=== PATIENT | male | born 1940 | race Caucasian/White ===

== ENCOUNTER 2022-10-11 17:02 | Outpatient (CLI) | payer MEDICARE, OTHER, SELFPAY ==
[2022-10-11 16:55] LABS: ESR 8 mm/hr (0-20)
[2022-10-11 16:56] LABS: Abs Immature Grans 0.03 10^3/uL (0.0-0.06); Absolute Basophil Count 0.05 10^3/uL (0.0-0.2); Absolute Eosinophil Count 0.21 10^3/uL (0.0-0.7); Absolute Monocyte Count 0.69 10^3/uL (0.1-0.8); Absolute Neutrophil Count 4.78 10^3/uL (1.2-6.7); Basophils % 0.7; Eosinophils % 2.8; HCT 38.9 % (40.0-50.0); HGB 13.2 g/dL (13.5-17.5); Immature Grans % 0.4; Lymphocytes % 23.8; MCH 31.1 pg (27.0-33.0); MCHC 33.9 % (32.0-36.0); MCV 92 fL (80-95); MPV 9.5 fL (8.0-11.0); Monocytes % 9.1; Neutrophils % 63.2; Platelet Count 223 10^3/uL (130-400); RBC 4.25 10^6/uL (4.36-5.78); RDW 12.6 % (11.8-14.1); RDW-SD 41.4 fL; WBC 7.56 10^3/uL (4.4-10.8)
[2022-10-11 17:14] LABS: C-Reactive Protein 0.83 mg/dL (0.0-0.3); Glucose 93 mg/dL (74-106)
[2022-10-11 17:27] LABS: Calculated LDL 108 mg/dL (<100); Cholesterol 195 mg/dL (<200); HDL Cholesterol 35 mg/dL (40-60); Triglyceride 262 mg/dL (<150)
== END 2022-10-11 17:03 | disposition home or self-care (01) ==
LOC: LBO 17:03
PROVIDERS: Visit Provider Optometrist
DX: H53.121 Transient visual loss, right eye (principal)
CPT/HCPCS: 36415; 80061; 82947; 85652; 85014; 85018; 85025; 86140

== ENCOUNTER 2022-10-11 17:19 | Emergency (ER) | payer MEDICARE, OTHER, SELFPAY ==
[2022-10-11] VITALS (24 sets, daily range): BP systolic 133–172; BP diastolic 49–74; PULSE 76–88; RESP 16–20; TEMP 36.4–36.6; O2SAT 92–100
--- NOTE | 2022-10-11 17:30 | DI.CT_ITS ---
Exam(s) CT BRAIN NECK CTA EXAM: CT BRAIN NECK CTA CLINICAL HISTORY: Vision disturbances, fall 1 week ago. TECHNIQUE: Imaging Protocol: Axial CT angiography was performed with multi-slice acquisition and mu lti-planar and/or 3D reconstructions. CONTRAST MATERIAL: Intravenous: Omnipaque 350 contrast volume:80 mL COMPARISON: No exams were available for comparison FINDINGS: CT Head W/O and W: Ventricles and Extra axial spaces: Normal in size and morphology for the patient's age. Hemorrhage: None. Cerebral parenchyma: No acute territorial infarct. There are areas of decreased attenuation in the w darrick matter most consistent with small vessel ischemic disease. Midline shift: None. Brainstem/Cerebellum: Normal. Calvarium: Normal. Visualized Paranasal sinuses/Mastoids: There is a mucous retention cyst or polyp in the right maxilla ry sinus. The remaining visualized paranasal sinuses are unremarkable as are the mastoid air cells. Soft Tissues: Unremarkable. Enhancement: Unremarkable. CTA Neck W: Common Carotid: Right: No dissection, occlusion or significant stenosis. Mild atherosclerosis. Left: No dissection, occlusion or significant stenosis. External Carotid: Right: No occlusion or significant stenosis. Mild atherosclerosis at the origin. Left: No occlusion or significant stenosis. Internal Carotid: Right: No dissection, occlusion or significant stenosis. Atherosclerosis at the origin resulting in 75 percent stenosis. Left: No dissection, occlusion or significant stenosis. Atherosclerosis at the origins with less jimmy n 50 percent stenosis. Vertebral Artery: Right: No dissection, occlusion or significant stenosis. The right vertebral artery terminates into a patent right PICA. Left: No dissection, occlusion or significant stenosis. Lung Apices: Normal. Bones: Within normal limits for the patient's age. Soft Tissues: Normal. Thyroid gland: Unremarkable. CTA Brain W: Internal Carotid Arteries: No aneurysm, occlusion or significant stenosis. Mild atherosclerosis. Anterior Cerebral Arteries: Right: No aneurysm, occlusion or significant stenosis. Left: No aneurysm, occlusion or significant stenosis. Middle Cerebral Arteries: Right: No aneurysm, occlusion or significant stenosis. Left: No aneurysm, occlusion or significant stenosis. Posterior Cerebral Arteries: Right: No aneurysm, occlusion or significant stenosis. There is origin of the right ADMINISTRATIVE PROCESSOR which is a normal variant. Left: No aneurysm, occlusion or significant stenosis. Vertebral Arteries: Right: No aneurysm, occlusion or significant stenosis. Left: No aneurysm, occlusion or significant stenosis. Basilar Artery: No aneurysm, occlusion or significant stenosis. IMPRESSION: 1. No large vessel occlusion or significant stenosis on the CT angiography of the head. 2. No acute intracranial process. 3. 75 percent stenosis in the proximal right ICA. No evidence of occlusion on the CT angiography of the neck. RADIATION DOSE DELIVERED: 2,239.73mGy.cm Total DLP DATA REPOSITORY: All CT scans at this facility are submitted to the National Radiology Data Registry (NRDR) Dose Index Registry (DIR) with the [employer] (ACR). RADIATION OPTIMIZATION: All CT scans at this facility use at least one of these dose optimization te chniques: automated exposure control; mA and/or kV adjustment per patient size (includes targeted exa ms where dose is matched to clinical indication); or iterative reconstruction.
--- NOTE | 2022-10-11 17:43 | ED.GENADUL_ITS ---
Discharge Plan Disposition Patient Disposition: Home Condition: Stable Discharge Details Clinical Impression: Carotid stenosis, right Primary Care Provider: Julia Bowen ED Provider: Kaya Garcia Home Meds and New Rx's Prescriptions: New atorvastatin 10 mg tablet 10 mg PO .every other day 30 Days Qty: 30 0RF Rx Instructions: Take one tablet by mouth every other day. clopidogrel [Plavix] 75 mg tablet 75 mg PO DAILY 30 Days Qty: 30 0RF Rx Instructions: Take one tablet by mouth daily aspirin 81 mg tablet,chewable 81 mg PO DAILY Qty: 30 0RF Rx Instructions: Chew one tablet daily Continued metoprolol succinate 50 mg Tablet Extended Release 24 Hr 50 mg PO BID tamsulosin 0.4 mg Capsule 0.4 mg PO DAILY amlodipine 10 mg Tablet 10 mg PO DAILY losartan 100 mg Tablet 100 mg PO DAILY brimonidine 0.15 % Drops 1 drp OPHTHALMIC (EYE) DAILY prednisolone acetate (PF) 1 % Drops,Suspension 1 drp ophthalmic (eye) DAILY Discharge Instructions Instructions: Carotid Artery Disease (DC) Additional Instructions: Please take the medications as prescribed. Begin taking Plavix or clopidogrel once daily, continue taking the chewable baby aspirin daily, they do suggest a low-dose statin every other day to decrease the incidence of leg cramping. Please follow-up with [facility] vascular surgery department they will call you for an appointment to be set that up within the next week. I did speak with Dr. Franco with Vascular Surgery. Follow up with primary care provider in 3-5 days. Return to ED sooner if any worsening headache, visual disturbances, weakness or concerns. Increase oral fluids. Referrals: Julia Bowen [Primary Care Provider] - 3 days Medical Decision Making 82-year-old male presents to the ER with chief complaint of visual disturbances status post fall 1 week ago where he hit his left eye on Saturday night stand. He reports since then he has had some visual field disturbances he reports a curtain falling to his right eye which has happened a couple times. He was sent here by [facility] and was recommended to have CT EEG, carotid ultrasound and MRI. He did have his labs drawn prior to arrival CBC CRP sed rate platelets and lipid panel and a glucose level. Patient denies any headache no focal neurodeficits no numbness weakness or tingling in his extremities. Alert and oriented x4. CTA brain and neck ordered, CMP and IV access ordered. CMP shows elevated BIUN and Cr of 1.9. , CRP 0.83 ESR normal at 8 CT shows 75% stenosis of Right ICA. And 30% stenosis of Left ICA. 1942: [facility] [place] to consult with Neurology. Discussed CT results with patient he verbalized understanding and is aware of the plan of care, he reports he does take an 81 mg baby aspirin daily. He is unsure of what statin he was on approximately 5 or 6 years ago that gave him leg cramps. 2005: Spoke with Dr. Smith with [facility] [place] neurology regarding patient case In details he was able to personally review the CT imaging, he recommends antiplatelet therapy such as clopidogrel 600 mg loading dose and carotid intervention in the near future he also recommends consult with vascular surgery which transfer center will get me in contact with. He also suggested possible statin every other day at a low dose. vascular surgery paged per transfer center. Clopidogrel 600 mg ordered. 2033: Spoke with Dr. Vogel with vascular surgery who agrees with Dr. Smith regarding dual antiplatelet therapy and every other day low-dose statin he will arrange to get patient in with the outpatient clinic within the next week. I will inform patient that he should expect a call from [facility] [place] vascular. He also recommends Plavix 75 mg daily continue with aspirin. Patient discharged in hemodynamically stable condition. This text was generated using [employer]ax [employer] system, please disregard any oddities of phrase or misspellings. Medical Records Medical records reviewed: Yes I reviewed the patient's medical records. Lab Data Lab results reviewed: Yes I reviewed the patient's lab results. Labs: Laboratory Tests Range/Units 10/11/22 17:57 Sodium (136-145) mmol/L 140 Potassium (3.5-5.1) mmol/L 4.7 Chloride (98-107) mmol/L 104 Carbon Dioxide (21.0-32.0) mmol/L 29.3 Anion Gap (3-11) mmol/L 6.7 BUN (7-18) mg/dL 34 H Creatinine (0.70-1.30) mg/dL 1.9 H Est GFR (CKD-EPI 2020) (mL/min/1.73m2) 35.00 Glucose (74-106) mg/dL 104 Calcium (8.5-10.1) mg/dL 9.0 Total Bilirubin (0.2-1.0) mg/dL 0.4 AST (15-37) U/L 22 ALT (16-63) U/L 41 Alkaline Phosphatase (46-116) U/L 60 Total Protein (6.4-8.2) g/dL 7.6 Albumin (3.4-5.0) g/dL 4.2 HPI General Mode of arrival: ambulatory . Date/Time Provider Initiated Documentation: 10/11/22 17:28 . Limitations to Documentation: no limitations . Information obtained by: patient, RN/MD, RN notes reviewed and old records reviewed . HPI Narrative: 82-year-old male presents to the ER with chief complaint of visual disturbances status post fall 1 week ago where he hit his left eye on Saturday night stand. He reports since then he has had some visual field disturbances he reports a curtain falling to his right eye which has happened a couple times. He was sent here by [facility] and was recommended to have CT EEG, carotid ultrasound and MRI. He did have his labs drawn prior to arrival CBC CRP sed rate platelets and lipid panel and a glucose level. Patient denies any headache no focal neurodeficits no numbness weakness or tingling in his extremities. Alert and oriented x4. Related Data Home Medications Medication Instructions Recorded Confirmed amlodipine 10 mg tablet 10 mg PO DAILY 10/11/22 10/11/22 aspirin 81 mg chewable tablet 81 mg PO DAILY #30 tabs 10/11/22 atorvastatin 10 mg tablet 10 mg PO .every other day 1 month 10/11/22 #30 tabs brimonidine 0.15 % eye drops 1 drp ophthalmic (eye) DAILY 10/11/22 10/11/22 clopidogrel 75 mg tablet (Plavix) 75 mg PO DAILY 1 month #30 tabs 10/11/22 losartan 100 mg tablet 100 mg PO DAILY 10/11/22 10/11/22 metoprolol succinate 50 mg 50 mg PO BID 10/11/22 10/11/22 tablet,extended release 24 hr prednisolone acetate (PF) 1 % eye 1 drp ophthalmic (eye) DAILY 10/11/22 10/11/22 drops,suspension tamsulosin 0.4 mg capsule 0.4 mg PO DAILY 10/11/22 10/11/22 Previous Rx's Medication Instructions Recorded aspirin 81 mg chewable tablet 81 mg PO DAILY #30 tabs 10/11/22 atorvastatin 10 mg tablet 10 mg PO .every other day 1 month 10/11/22 #30 tabs clopidogrel 75 mg tablet (Plavix) 75 mg PO DAILY 1 month #30 tabs 10/11/22 Allergies Allergy/AdvReac Type Severity Reaction Status Date / Time [id number] Reductase AdvReac Intermediate Other (See Unverified 10/11/22 17:27 Inhibitor Comment) General Stated Complaint: CVA/TIA CORTNEY: 3 Review of Systems All systems reviewed & are unremarkable except as noted in HPI and below Constitutional Constitutional: Denies headache(s) and Denies weakness Eyes Eyes: Reports as per HPI, Reports blurry vision, Reports change in vision and Reports other visual disturbances ENT Ears, Nose, Mouth, and Throat: Denies dizziness and Denies headache(s) Cardiovascular Cardiovascular: Denies chest pain and Denies dyspnea Respiratory Respiratory: Denies dyspnea Musculoskeletal Musculoskeletal: Denies abnormal gait Neurologic Neurologic: Denies abnormal speech, Denies abnormal gait, Denies dizziness, Denies headache(s), Reports other visual disturbances, Denies seizure-like activity and Denies weakness PFSH All Active Problems (Updated 10/11/22 @ 20:40 by Kaya Garcia NP) Carotid stenosis, right (Acute) Social History Smoking/Tobacco Use Status: Never Smoking risk assessment performed?: Yes Alcohol Intake: never Drug use: Never Substance use type: does not use Do you feel safe at home: Yes Do you feel safe in your relationship?: Yes Exam Narrative Exam Narrative: Constitutional: Alert and oriented x3. Appears stated age. Normal body habitus. Head: Normocephalic, no trauma. Eyes: Pupils PERRL, Red reflex noted, EOM's intact. Eyelids symmetrical without lesions, discharge, or swelling. ENT: Bilateral TM's WNL, External ear normal to inspection, no mastoid TTP, swelling, or erythema, Nasal turbinates WNL, no nasal discharge. Normal dentition, Posterior pharynx WNL, no exudate. Chest: RRR, Normal S1, S2, distal pulses intact. Resp: Lungs clear to auscultation bilaterally, no wheezes, rales, or rhonchi. Abdomen: Soft, non-distended, Normoactive bowel sounds all 4 quads. Musculoskeletal: Normal gait, 5/5 strength to all four extremities. Skin: No suspicious rashes or lesions. Capillary refill less than 2 sec. Neurologic: Cranial nerves II-XII intact. Alert and oriented x 3. Motor: No deficits noted. Sensory: Intact bilaterally all 4 extremities. Reflexes: DTR's intact bilaterally.. Hematologic/Lymphatic: No ecchymosis, no lymphadenopathy. Course Vital Signs Vital signs: Vital Signs Temperature 36.6 C 10/11/22 17:23 Pulse 86 10/11/22 17:23 Respiratory Rate 17 10/11/22 17:23 Blood Pressure 172/74 H 10/11/22 17:23 Pulse Oximetry 97 10/11/22 17:23 Temperature 36.6 C 10/11/22 17:23 Temperature Source Oral 10/11/22 17:23 Pulse 86 10/11/22 17:23 Respiratory Rate 17 10/11/22 17:23 Respiratory Effort Normal 10/11/22 17:25 Blood Pressure 172/74 H 10/11/22 17:23 Blood Pressure Position Sitting 10/11/22 17:23 Pulse Oximetry 97 10/11/22 17:23 Oxygen Delivery Method Room Air 10/11/22 17:23 Oxygen Flow Rate 0 10/11/22 17:23 Pain Level 0 10/11/22 17:23
[2022-10-11 18:17] LABS: ALT 41 U/L (16-63); AST 22 U/L (15-37); Albumin 4.2 g/dL (3.4-5.0); Alkaline Phosphatase 60 U/L (46-116); Anion Gap 6.7 mmol/L (3-11); BUN 34 mg/dL (7-18); Bilirubin, Total 0.4 mg/dL (0.2-1.0); CO2 29.3 mmol/L (21.0-32.0); CREATININE 1.9 mg/dL (0.70-1.30); Chloride 104 mmol/L (98-107); Glucose 104 mg/dL (74-106); Potassium 4.7 mmol/L (3.5-5.1); Sodium 140 mmol/L (136-145); Total Protein 7.6 g/dL (6.4-8.2)
[2022-10-11] MEDS: Normal Saline - Diluent 50 ML VIAL IJ (18:44)
[2022-10-11] MEDS: Omnipaque 350 MG/ML 100 ML BTL IJ (18:44)
[2022-10-11] MEDS: Normal Saline Flush 10 ML SYR IVP (18:45)
--- NOTE | 2022-10-11 19:30 | DI.VRAD_ITS ---
PROCEDURE INFORMATION: Exam: CTA Head Without And With Contrast, Arteriography Exam date and time: 10/11/2022 6:43 PM Age: 82 years old Clinical indication: Other: Vision disturbances, fall 1 week ago TECHNIQUE: Imaging protocol: Computed tomographic angiography of the head without and with contrast. Exam focused on the arteries. 3D rendering (Not supervised by radiologist): MIP and/or 3D reconstructed images were created by the technologist. Contrast material: OMNIPQUE 350; Contrast volume: 80 ml; Contrast route: INTRAVENOUS (IV); COMPARISON: No relevant prior studies available. FINDINGS: ANTERIOR CIRCULATION: Right internal carotid artery: Calcific atherosclerotic changes of the intracranial right internal carotid artery without evidence of hemodynamically significant stenosis. Right middle cerebral artery: No occlusion or significant stenosis. No aneurysm. Right anterior cerebral artery: No occlusion or significant stenosis. No aneurysm. Left internal carotid artery: Calcific atherosclerotic changes of the intracranial left internal carotid artery without evidence of hemodynamically significant stenosis. Left middle cerebral artery: No occlusion or significant stenosis. No aneurysm. Left anterior cerebral artery: No occlusion or significant stenosis. No aneurysm. POSTERIOR CIRCULATION: Right vertebral artery: Patent intracranial right vertebral artery terminates into a patent right posterior inferior cerebellar artery. Left vertebral artery: No occlusion or significant stenosis. No aneurysm. Basilar artery: No occlusion or significant stenosis. No aneurysm. Right posterior cerebral artery: Patent and type right posterior cerebral artery. Left posterior cerebral artery: No occlusion or significant stenosis. No aneurysm. HEAD: Brain: Mild nonspecific hypodensities of the periventricular and deep subcortical white matter, most likely secondary to chronic microangiopathic ischemic change. No intracranial hemorrhage or extra-axial fluid collection. No evidence of mass effect or midline shift. Gabriel-white matter differentiation is normal. Cerebral ventricles: Mild prominence of the ventricles and sulci, most likely attributed to parenchymal volume loss. Bones/joints: Unremarkable. No acute fracture. Paranasal sinuses: Visualized sinuses are normal. No fluid levels. Mastoid air cells: Visualized mastoids are normal. No mastoid effusion. Soft tissues: Unremarkable. IMPRESSION: 1. No intracranial arterial occlusion or significant stenosis. 2. No acute findings on non-contrast Head CT images. ASPECTS score 10. 3. Chronic findings, as above. PROCEDURE INFORMATION: Exam: CTA Neck With Contrast Exam date and time: 10/11/2022 6:43 PM Age: 82 years old Clinical indication: Other: Vision disturbances, fall 1 week ago TECHNIQUE: Imaging protocol: Computed tomographic angiography of the neck with contrast. 3D rendering (Not supervised by radiologist): MIP and/or 3D reconstructed images were created by the technologist. Contrast material: OMNIPQUE 350; Contrast volume: 80 ml; Contrast route: INTRAVENOUS (IV); COMPARISON: No relevant prior studies available. FINDINGS: Right common carotid artery: No significant stenosis. No dissection or occlusion. Right internal carotid artery: Atherosclerotic plaques within the proximal extracranial right internal carotid artery cause approximately 75 % stenosis by NASCET criteria. Remaining portions of the extracranial right ICA are patent. Right external carotid artery: No occlusion or significant stenosis. Left common carotid artery: No significant stenosis. No dissection or occlusion. Left internal carotid artery: Atherosclerotic plaques within the proximal extracranial left internal carotid artery cause approximately 30 % stenosis by NASCET criteria. Remaining portions of the extracranial left ICA are patent. Left external carotid artery: No occlusion or significant stenosis. Right vertebral artery: No significant stenosis. No dissection or occlusion. Left vertebral artery: No significant stenosis. No dissection or occlusion. Soft tissues: Unremarkable. Bones/joints: No acute fracture. IMPRESSION: Approximately 75% stenosis of the proximal right ICA, and 30% stenosis of the proximal left ICA. REFERENCES: NASCET CRITERIA. The degree of stenosis in the cervical segment of the internal carotid artery is based on NASCET criteria. Normal is no stenosis. Mild is less than 50% stenosis. Moderate is 50-69% stenosis. Severe is 70% to 99% stenosis. Total occlusion is no detectable patent lumen. Dictated and Authenticated by: José Miguel Beard MD. Ordering:JOHNNY Kirkpatrick MD
[2022-10-11] MEDS: Clopidogrel 300 MG TAB 600 MG PO (20:25)
== END 2022-10-11 21:03 | disposition home or self-care (01) ==
PROVIDERS: Emergency Provider Registered Nurse Emergency; PCP Nurse Practitioner Family
DX: I65.21 Occlusion and stenosis of right carotid artery (principal)
CPT/HCPCS: 36415; 70496; 70498; 80053; 80061; 82947; 85652; 99285; 85025; 86140; 99284; J3490

== ENCOUNTER → 2023-07-15 00:40 | Outpatient (CLI) | payer MEDICARE, SELFPAY ==
--- NOTE | 2023-07-15 | DI.RAD_ITS ---
Exam(s) RF MODIFIED SPEECH BA SWALLOW TECHNIQUE: Modified barium swallow was performed in conjunction with speech pathology. CONTRAST MATERIAL: Oral barium contrast was administered. COMPARISON: No exams were available for comparison FINDINGS: Note that this is not a dedicated esophagram, distal esophagus not evaluated. Examination was performed with thin and thick barium, barium pudding and barium on a cracker. Speech pathology report to follow. There was penetration during the examination. No aspiration. IMPRESSION: Penetration occurred during the examination. No aspiration. RADIATION DOSE DELIVERED: lito Klein=9.34 mGy
[2023-07-15] MEDS: Barium Sulfate 81% w/w for Oral Suspension 148 GM BTL PO (09:29)
[2023-07-15] MEDS: Barium Sulfate Oral Paste 40% W/V 230 ML TUBE PO (09:30)
[2023-07-15] MEDS: Barium Sulfate 40% W/V 240 ML BTL PO (09:30)
--- NOTE | 2023-07-15 09:56 | ST.MBS ---
Date of Service Date of service: 07/15/23 Time of Service: 09:00 Modified Barium Swallow Study Findings: Video fluoroscopic Swallowing Evaluation (VFSE) / Modified Barium Swallow Study (MBSS) Speech Language Pathology Report Patient referred for VFSE/MBSS from Dr. Chuy Head given ongoing dysphagia complaints following recent surgery. HPI & Patient report of function: Cam Salinas is a 83 year old male who underwent a carotid endarterectomy on 05/08/23. Since this surgery he has experienced stable vocal hoarseness and dysphagia complaints, including food getting stuck in upper throat, coughing/sensation of food/liquid going down the wrong way, as well as almost daily vomiting and weight loss. Devin reports he has been constantly nauseas since the surgery, and can vomit upon waking up in addition to after eating/drinking. He denies odynophagia. Devin states he does suspect symptoms have improved, though questions he may have gotten used to it. He is still favoring softer foods, though can eat regular solids. eDvin was seen by ENT on 06/06/23 for flexible laryngoscopy, which revealed right vocal cord paralysis. ENT referred for MBSS [place] [facility] [place] consideration of candidacy for vocal cord injection. He states this appointment is scheduled for later this month. Previous Imagin06/06/23: Nasolaryngoscopy performed by Dr Head revealed R vocal cord paralysis No other imaging to date IMPRESSIONS: Mild sensorimotor pharyngeal phase dysphagia, characterized by delay in pharyngeal swallow initiation, resulting in the thin liquid bolus reaching the level of the pyriforms and the laryngeal vestibule immediately prior to epiglottic deflection. This results in consistent penetration of thin liquids, though the bolus remained above the level of the vocal cords and ejected in all trials except in one trial of consecutive sips, in which very trace quantity penetration does appear to reach the level of the vocal cords without cough reflex. Aspiration was not observed during the study, though possible that very trace quantity was aspirated between slides. A chin tuck was attempted but did not eliminate penetration. Mildly thick liquids did eliminate penetration. Oral pharyngeal strength appears grossly intact. There is mild vallecular retention after the initial swallow with solids, though this cleared spontaneously with repeat swallow. This indicates intact sensation and is considered WNL. See below for further breakdown anatomical/physiological function. Ultimately, the patient's symptoms (stasis/'liquids going down the wrong way') did not occur during the study today, and thus today's exam may not be fully construction sales representative of patient's impairments, especially if eating/drinking at faster rate or with larger size bolus. Recommend brief follow up with [facility] [employer] [facility] for review of study and education on safe swallowing strategies. Devin may also benefit from a brief intervention of voice therapy to avoid maladaptive habits with attempts to speak with paralyzed vocal cord, pending results of upcoming appt with Dr Martinez. Devin's symptoms of daily vomiting and nausea since his surgery, that can occur upon waking/before eating or after meals, would benefit from further medical work up from PCP vs GI. Patient appears to be at low risk for potential aspiration PNA and/or pulmonary compromise and low risk for malnutrition, low risk for dehydration. Specialist referrals:? ENT follow up with Dr Martinez for consideration of vocal cord injection Additional medical work up (PCP vs GI) for nausea/vomiting symptoms. RECOMMENDATIONS: Diet Texture Recommendation:? IDDSI LEVEL SOLIDS 7-Regular Solids (Add moisture, cut food up small, favor softer foods) LIQUIDS 0-Thin Liquids MEDICATIONS Whole with sip of liquid Diet texture modification is per patient's preference; please adjust diet textures at patient's discretion & collaboration with care team. Do not alter medications (e.g., cut)? without advice from your MD or pharmacist. Risk Management Strategies:? Small bites, approx [id number] Small sips, approx 10 mL Always have a drink with food. Take a sip every few bites. Upright 90 degree positioning for all PO Chew food thoroughly, until liquid applesauce, before swallowing PLAN: Therapy: Recommend subsequent outpatient session with [facility] [employer] to review results of today's exam and develop treatment plan as appropriate. May consider the following: Targeted Oropharyngeal Exercise per treating [employer] [employer] Oropharyngeal Exercises to target deficits noted in objective section above Further Compensatory Strategy Training Further Training/Education in Risk Management. Consideration of voice therapy to avoid maladaptive habits pending results of upcoming ENT appt with Dr Martinez. Goals: Alf Goals: Patient will tolerate the safest/least restrictive diet while remaining free of aspiration related illness. Short Term Goals: Patient/caregiver/staff will be independent with aspiration precautions, diet modifications, and safe swallowing strategies. Patient/caregiver will verbalize/demonstrate understanding of education r/t anatomy/physiology of normal vs disordered swallowing mechanism, overt s/sx to monitor for re: potential aspiration of food liquids, recommendations for improved oral care, relationship between respiratory function changes and deglutition, rationale for risk management strategies. Follow-up exam: N/A OBJECTIVE Videofluoroscopic Swallow Evaluation (VFSE/MBSS) was conducted in the lateral[ and [id number]] projection by Speech-Language Pathologist, in collaboration with Radiologist, to evaluate oropharyngeal swallow function. Anatomic view under fluoroscopy: Sarcopenia appreciated, consistent with presbyphagia. Slightly increased curvature of epiglottis noted, though WFL. PO Barium Contrast Trials Oral barium water-soluble contrast was administered as follows: IDDSI Level 0 Varibar thin liquid (40% w/v) IDDSI Level 2 Varibar nectar thick/mildly thick liquid (40% w/v) IDDSI Level 4 Varibar pudding/pureed/extremely thick (40% w/v) IDDSI Level 7 Regular Solid: 1/2 zaen cracker coated in 3 mL Varibar pudding MBSImP Component Scores: COMPONENT Scale SCORE 1 Lip closure (0-4) 0 Resulted in no labial escape 2 Hold Position (0-3) 0 Maintained a cohesive bolus between tongue to palatal seal 3 Bolus Preparation (0-4) 0 Resulted in timely and efficient chewing and mashing 4 Bolus Transport (0-4) 0 Was with brisk tongue motion 5 Oral Residue (0-4) 1 Was a trace, lining oral structures 6 Swallow Initiation (0-4) 3 Occurred when the bolus head was in the pyriform sinuses 7 Soft Palate Elevation (0-4) 0 Resulted in no bolus between soft palate and the pharyngeal wall 8 Laryngeal Elevation (0-3) 1 Was decreased with partial superior movement of thyroid cartilage/partial approximation of arytenoids to epiglottic petiole 9 Anterior Hyoid Motion (0-2) 0 Demonstrated complete anterior movement 10 Epiglottic Movement (0-2) 0 Resulted in complete inversion 11 Laryngeal Closure (0-2) 1 Was incomplete with narrow a column of air/contrast in laryngeal vestibule 12 Pharyngeal Stripping Wave (0-2) 0 Was present and complete 13 Pharyngeal Contraction (0-3) 0 Was complete 14 PES Opening (0-3) 0 Was completely distended and complete duration with no obstruction of flow 15 Tongue Base Retraction (0-4) 0 Allowed no contrast between the tongue base and posterior pharyngeal wall 16 Pharyngeal Residue (0-4) 1 Showed a trace within or on pharyngeal structures 17 Esophageal Clearance (0-4) 0 Was complete, with only a coating of contrast, if any Results: COMPONENT Scale SCORE 1 Oral Score (0-18) 3 2 Pharyngeal Score (0-29) 2 3 Esophageal Score (0-4) 0 Functional Oral Intake Scale: COMPONENT Scale SCORE 1 Pre-Study (1-7) 7 Total oral intake with no restrictions 2 Post-Study (1-7) 7 Total oral intake with no restrictions Penetration-Aspiration Scale: COMPONENT Scale SCORE 1 Thin liquid (1-8) 4 Contrast entered the airway, contacted the vocal folds, and was ejected from the airway. *This represents 1 trial of consecutive sips of thin. For 4 other trials of thin, the bolus entered the airway, remained above the vocal cords, and was ejected. 2 [place] thick (1-8) 1 Contrast did not enter the airway 3 Honey thick (1-8) NA 4 Pudding thick (1-8) 1 Contrast did not enter the airway 5 Cookie (1-8) 1 Contrast did not enter the airway Trialed Compensatory Strategies & Outcome: Maneuvers Successful (+) Unsuccessful (-) Postures Successful (+) Unsuccessful (-) 3 second Preparatory Set? ?-- unsuccessful Chin Tuck Posture? -- unsuccessful ? Cough? ? Posterior Head tilt? Reflexive? Cued? Throat Clear? ? Head Tilt to? Reflexive? Left? Cued? Right? ? Saliva swallow? ? Head Turn/Rotate to? ? Supraglottic Swallow? Left? ? Super-supraglottic Swallow? Right? ? Bolus Modifications Successful (+) Unsuccessful (-) Delivery/Alternating Consistencies ? Follow with Liquid Wash ? Follow with Solid Bolus? Delivery/Via Straw? ? Reduced Volume? + ? Reduced Rate of Intake? ? Increased Viscosity? ? Other:?? ? Snapshot of laryngeal penetration with thin liquids: Thank you for allowing us to take part in this patient's care. Please feel free to contact the [facility] Speech Language Pathology Department with any questions/concerns.
== END ==
PROVIDERS: PCP Nurse Practitioner Family; Visit Provider Speech-Language Pathologist
DX: J38.00 Paralysis of vocal cords and larynx, unspecified (principal); R13.10 Dysphagia, unspecified
CPT/HCPCS: 92526; 74221